=== PATIENT | female | born 1990 | race Caucasian/White ===

== ENCOUNTER 2016-12-09 14:40 | Outpatient (CLI) | payer MEDICARE, MEDICAID ==
--- NOTE | 2016-12-09 19:45 | RAD ---
THREE VIEWS OF THE RIGHT ANKLE 12/09/16 INDICATION: Right ankle swelling. FINDINGS: No acute fracture or subluxation is grossly evident. There is slight widening of the superolateral a spect of the ankle mortise which can be seen with ankle instability. Accessory ossicle is seen adjac ent to the navicular. IMPRESSION: Widening of the superolateral aspect of the right ankle mortise can be seen with ligament instabilit y. A followup MRI of the right ankle would be helpful. No definite acute fracture is evident. POS: JAISON
== END 2016-12-09 14:41 | disposition home or self-care (01) ==
LOC: MADRAD 14:40
PROVIDERS: ATTEND Nurse Practitioner Family
DX: M25.471 Effusion, right ankle (principal)

== ENCOUNTER 2017-05-16 19:55 | Emergency (ER) | payer MEDICARE, MEDICAID ==
[2017-05-16] MEDS ORDERED: Diazepam 5 MG TAB ONE (20:27)
[2017-05-16] MEDS ORDERED: HYDROcodone/Acetaminophen 10/325 mg Tablet ONE (20:27)
[2017-05-16] MEDS ORDERED: Naproxen 500 MG TAB ONE (20:27)
--- NOTE | 2017-05-16 21:23 | CT ---
CT LUMBAR SPINE 05/16/17 HISTORY: 26-year-old who lifted her 4-year-old with back pain. Noncontrast enhanced CT images obtained with coronal and sagittal reconstructions. There is end plate irregularity involving the superior and inferior end plates of T12-L1, L1-2, and L2-3. No significant evidence of acute lumbar spine fractures seen. No significant evidence of centr al spinal stenosis seen. The neural foramen are patent. IMPRESSION: No evidence of acute lumbar spine fractures or bony lesions seen. POS: JAISON
== END 2017-05-16 21:37 | disposition home or self-care (01) ==
LOC: MADERS 19:55
DX: M54.5 Low back pain (principal); I10 Essential (primary) hypertension; F84.0 Autistic disorder; Z79.899 Other long term (current) drug therapy
CPT/HCPCS: 72131

== ENCOUNTER 2017-08-16 14:39 | Outpatient (CLI) | payer MEDICARE, MEDICAID ==
--- NOTE | 2017-08-16 14:58 | RAD ---
CERVICAL SPINE THREE VIEWS: History: Neck pain. FINDINGS: Vertebral bodies and alignment are maintained. No acute fracture or dislocation are apparent. No radi opaque foreign bodies are visible. IMPRESSION: No acute osseous abnormalities are demonstrated. POS: JAISON
--- NOTE | 2017-08-16 15:33 | RAD ---
THREE VIEWS LUMBAR SPINE: 08/16/17 HISTORY: Lumbar disc displacement. COMPARISON: None. FINDINGS: Five lumbar type vertebral bodies. Lumbar spine vertebral body height is maintained. There is no frac ture. No spondylolisthesis or definite spondylolysis. Calcifications in the right lower quadrant are nonspecific. IMPRESSION: No evidence of fracture or dislocation. If there is concern, consider better interrogation with MRI. Previous lumbar spine MRI does document degenerative disc disease. POS: JAISON
== END 2017-08-16 14:40 | disposition home or self-care (01) ==
LOC: MADRAD 14:39
DX: M51.26 Other intervertebral disc displacement, lumbar region (principal); M54.2 Cervicalgia
CPT/HCPCS: 72040; 72100

== ENCOUNTER 2019-05-29 19:44 | Emergency (ER) | payer MEDICARE, MEDICAID ==
[~2019-05-29 19:44] MED LIST: Sodium Chloride 0.9% 1,000 ML BAG ONE
[2019-05-29] MEDS ORDERED: Ondansetron PF 4 MG/2 ML Vial ONE (20:15)
[2019-05-29] MEDS ORDERED: Dextrose 5 %-0.45 % NaCl 1,000 ML ONE (20:17)
[2019-05-29] MEDS ORDERED: Thiamine HCl 200 MG/2 ML VIAL ONE (20:19)
[2019-05-29] MEDS ORDERED: Multivit, Adult Inj 10 ML VIAL ONE (20:19)
[2019-05-29 20:20] LABS: #Basophils 0.1 thou/uL (0.0-0.2); #Eosinphils 0.1 thou/uL (0.0-0.7); #Lymphocytes 2.7 thou/uL (1.20-3.40); #Monocytes 0.7 thou/uL (0.11-0.59); #Neutrophils 5.7 thou/uL (1.40-6.50); %Basophils 1.3 % (0.0-1.0); %Eosinophils 1.5 % (0.0-10.0); %Lymphocytes 28.9 % (21.0-51.0); %Monocytes 7.7 % (0.0-10.0); %Neutrophils 60.6 % (42.0-75.0); Hemoglobin 16.8 g/dL (12.0-16.0); Mean Corpuscular HGB CONC 32.7 g/dL (32.0-36.0); Mean Corpuscular Hemoglobin 28.2 pg (27.0-31.0); Mean Corpuscular Volume 86.1 fL (78.0-98.0); Mean Platelet Volume 7.2 fL (7.4-10.4); Platelet Count 297 thou/uL (130-400); RBC Distribution Width 11.6 % (11.5-14.5); Red Blood Cell (RBC) Count 5.96 mill/uL (4.20-5.40); White Blood Cell (WBC) Count 9.4 thou/uL (4.8-10.8)
[2019-05-29 20:33] LABS: BHCG - Serum Negative (NEGATIVE); Pregs Control Background? CLEAR/WHITE (CLR/WHITE); Pregs Control Bar Appear? YES (CONTROL BAR)
[2019-05-29 20:41] LABS: ALT (SGPT) 106 U/L (8-55); AST (SGOT) 46 U/L (5-34); Albumin 4.9 g/dL (3.5-5.0); Alkaline Phosphatase 78 U/L (40-110); Anion Gap 23 mmol/L (10-20); BUN (Urea Nitrogen) 9 mg/dL (7.0-18.7); Bilirubin, Total 1.9 mg/dL (0.2-1.2); Calc. Creatinine Clearance 0 mL/min (70-130); Calcium 9.9 mg/dL (7.8-10.44); Carbon Dioxide 16 mmol/L (22-29); Chloride 106 mmol/L (98-107); Estimated GFR-MDRD 80; Globulin 3.3 g/dL (2.4-3.5); Glucose 96 mg/dL (70-105); Lipase 35 U/L (8-78); Potassium 3.7 mmol/L (3.5-5.1); Protein, Total 8.2 g/dL (6.0-8.3); Sodium 141 mmol/L (136-145)
[2019-05-29 20:42] LABS: Lactic Acid 1.6 mmol/L (0.5-2.2)
--- NOTE | 2019-05-29 21:28 | CT ---
CT Abdomen Pelvis W Con: 05/29/2019 8:14 PM CLINICAL INFORMATION: Abdominal pain status post gastric sleeve procedure COMPARISON: None. TECHNIQUE: Multiple contiguous axial images were obtained and a CT of the abdomen and pelvis with IV contrast. C oronal and sagittal reformats were performed. FINDINGS: Lower Chest: within normal limits. Abdomen: Liver: within normal limits. Bile Ducts: Normal caliber. Gallbladder: No calcified gallstones. Normal caliber wall. Pancreas: within normal limits. Spleen: within normal limits. Adrenals: within normal limits. Kidneys: within normal limits. Pelvis: Reproductive Organs: No pelvic masses. Ureters: within normal limits. Bladder: within normal limits. Peritoneum: A few bubbles of free air in the abdomen may be from recent surgery. Bowel: Normal caliber. Postsurgical changes are seen in the stomach from gastric sleeve procedure. Mesentery and Retroperitoneum: No enlarged mesenteric or retroperitoneal lymph nodes. Vessels: Normal. Abdominal Wall: Stranding in the anterior abdominal wall from patient's port sites. Bones: Within normal limits IMPRESSION: Expected postsurgical changes without evidence of acute intraabdominal or pelvic abnormality.
[2019-05-29 22:51] LABS: Anion Gap 17 mmol/L (10-20)
[2019-05-29 22:53] LABS: BUN (Urea Nitrogen) 7 mg/dL (7.0-18.7); Calc. Creatinine Clearance 0 mL/min (70-130); Calcium 7.9 mg/dL (7.8-10.44); Carbon Dioxide 16 mmol/L (22-29); Chloride 107 mmol/L (98-107); Estimated GFR-MDRD Greater than 90; Glucose 245 mg/dL (70-105); Potassium 3.5 mmol/L (3.5-5.1); Sodium 136 mmol/L (136-145)
== END 2019-05-29 23:55 | disposition home or self-care (01) ==
LOC: MADERS 19:44
DX: E86.0 Dehydration (principal); R10.9 Unspecified abdominal pain; G89.18 Other acute postprocedural pain; K02.9 Dental caries, unspecified
CPT/HCPCS: 36415; 36416; 74177; 80053; 83605; 83690; 84703; 85025; 96361; 96365; 96366; 96375; J2405; J3411; J7042; J7050

== ENCOUNTER 2019-06-07 22:51 | Emergency (ER) | payer MEDICARE, MEDICAID ==
[2019-06-07] MEDS ORDERED: Sodium Chloride 0.9% 1,000 ML ONE (23:15)
[2019-06-07] MEDS ORDERED: Pantoprazole 40 MG VIAL ONE (23:15)
[2019-06-07] MEDS ORDERED: Ondansetron PF 4 MG/2 ML Vial ONE (23:15)
[2019-06-07 23:42] LABS: INR-International Normal Ratio 1.1; PTT 31.3 SEC (22.9-36.1); Prothrombin Time 14.3 SEC (12.0-14.7)
[2019-06-07 23:45] LABS: #Basophils 0.1 thou/uL (0.0-0.2); #Eosinphils 0.1 thou/uL (0.0-0.7); #Lymphocytes 1.6 thou/uL (1.20-3.40); #Monocytes 0.6 thou/uL (0.11-0.59); #Neutrophils 3.4 thou/uL (1.40-6.50); %Basophils 1.4 % (0.0-1.0); %Eosinophils 1.7 % (0.0-10.0); %Lymphocytes 28.1 % (21.0-51.0); %Monocytes 10.4 % (0.0-10.0); %Neutrophils 58.5 % (42.0-75.0); Hemoglobin 15.5 g/dL (12.0-16.0); Mean Corpuscular HGB CONC 32.5 g/dL (32.0-36.0); Mean Corpuscular Hemoglobin 28.3 pg (27.0-31.0); Mean Corpuscular Volume 87.1 fL (78.0-98.0); Mean Platelet Volume 7.1 fL (7.4-10.4); Platelet Count 280 thou/uL (130-400); RBC Distribution Width 12.5 % (11.5-14.5); Red Blood Cell (RBC) Count 5.47 mill/uL (4.20-5.40); White Blood Cell (WBC) Count 5.8 thou/uL (4.8-10.8)
[2019-06-07 23:51] LABS: ALT (SGPT) 89 U/L (8-55); AST (SGOT) 49 U/L (5-34); Albumin 4.4 g/dL (3.5-5.0); Alkaline Phosphatase 62 U/L (40-110); Anion Gap 21 mmol/L (10-20); BUN (Urea Nitrogen) 4 mg/dL (7.0-18.7); Bilirubin, Total 1.6 mg/dL (0.2-1.2); Calc. Creatinine Clearance 0 mL/min (70-130); Calcium 9.5 mg/dL (7.8-10.44); Carbon Dioxide 20 mmol/L (22-29); Chloride 105 mmol/L (98-107); Estimated GFR-MDRD 60; Globulin 3.3 g/dL (2.4-3.5); Glucose 80 mg/dL (70-105); Potassium 3.2 mmol/L (3.5-5.1); Protein, Total 7.7 g/dL (6.0-8.3); Sodium 143 mmol/L (136-145)
[2019-06-08] MEDS ORDERED: Promethazine HCl 25 MG/ML VIAL ONE (00:09)
[2019-06-08] MEDS ORDERED: Potassium Chloride 20 MEQ TAB ONE (00:09)
[2019-06-08] MEDS ORDERED: Sodium Chloride 0.9% 1,000 ML ONE (00:09)
[2019-06-08] MEDS ORDERED: Potassium Chloride 10 MEQ TAB ONE ×2 (00:19→00:20)
[2019-06-08] MEDS ORDERED: Diazepam 10 MG/2 ML SYRINGE ONE (01:15)
== END 2019-06-08 01:25 | disposition home or self-care (01) ==
LOC: MADERS 22:51
DX: E86.0 Dehydration (principal); R11.2 Nausea with vomiting, unspecified; K95.89 Other complications of other bariatric procedure; J45.909 Unspecified asthma, uncomplicated; I10 Essential (primary) hypertension; F84.0 Autistic disorder
CPT/HCPCS: 80053; 85025; 85610; 85730; 96361; 96372; 96374; 96375; C9113; J2405; J2550; J3360; J7050

== ENCOUNTER 2019-12-19 15:03 | Emergency (ER) | payer MEDICARE, OTHER ==
[2019-12-19 15:27] LABS: Bilirubin Negative (Negative); Blood, Urine Moderate (Negative); Clarity Hazy (Clear); Glucose, Urine (Dipstick) Negative (Negative); Leukocyte Trace (Negative); Nitrite Negative (Negative); Protein, Urine (Dipstick) Negative (Neg-Trace)
[2019-12-19 15:29] LABS: Pregnancy Test - Urine (BHCG) Negative (Negative); Pregu Control Background? CLEAR/WHITE (CLR/WHITE); Pregu Control Bar Appear? YES (CONTROL BAR); Specific Gravity 1.015 (1.002-1.036)
[2019-12-19 15:33] LABS: Bacteria/HPF 1+ HPF (None Seen); WBC/HPF 0-3 HPF (0-3)
--- NOTE | 2019-12-19 15:52 | RAD ---
PA AND LATERAL OF THE CHEST: 12/19/19 INDICATION: Chest pain. COMPARISON: None. FINDINGS: Lungs are clear. Heart size is normal. No acute osseous abnormality is evident. IMPRESSION: No acute cardiopulmonary abnormality. POS: BH
[2019-12-19 16:04] LABS: #Basophils 0.1 thou/uL (0.0-0.2); #Eosinphils 0.1 thou/uL (0.0-0.7); #Lymphocytes 2.3 thou/uL (1.20-3.40); #Monocytes 0.4 thou/uL (0.11-0.59); #Neutrophils 3.3 thou/uL (1.40-6.50); %Basophils 1.2 % (0.0-1.0); %Lymphocytes 37.4 % (21.0-51.0); %Neutrophils 53.4 % (42.0-75.0); Hemoglobin 13.8 g/dL (12.0-16.0); Mean Corpuscular HGB CONC 32.8 g/dL (32.0-36.0); Mean Corpuscular Hemoglobin 29.3 pg (27.0-31.0); Mean Corpuscular Volume 89.3 fL (78.0-98.0); Mean Platelet Volume 6.8 fL (7.4-10.4); Platelet Count 249 thou/uL (130-400); RBC Distribution Width 11.2 % (11.5-14.5); Red Blood Cell (RBC) Count 4.72 mill/uL (4.20-5.40); White Blood Cell (WBC) Count 6.1 thou/uL (4.8-10.8)
[2019-12-19 16:19] LABS: ALT (SGPT) 12 U/L (8-55); AST (SGOT) 15 U/L (5-34); Albumin 3.8 g/dL (3.5-5.0); Alkaline Phosphatase 54 U/L (40-110); Anion Gap 13 mmol/L (10-20); BUN (Urea Nitrogen) 8 mg/dL (7.0-18.7); Bilirubin, Total 1.3 mg/dL (0.2-1.2); Calc. Creatinine Clearance 0 mL/min (70-130); Calcium 8.7 mg/dL (7.8-10.44); Carbon Dioxide 25 mmol/L (22-29); Chloride 107 mmol/L (98-107); Estimated GFR-MDRD Greater than 90; Globulin 2.6 g/dL (2.4-3.5); Glucose 84 mg/dL (70-105); Lipase 20 U/L (8-78); Potassium 3.4 mmol/L (3.5-5.1); Protein, Total 6.4 g/dL (6.0-8.3); Sodium 142 mmol/L (136-145)
== END 2019-12-19 18:32 | disposition home or self-care (01) ==
LOC: MADERS 15:03
DX: R07.9 Chest pain, unspecified (principal); J45.909 Unspecified asthma, uncomplicated; I10 Essential (primary) hypertension; Z79.899 Other long term (current) drug therapy
CPT/HCPCS: 36415; 71046; 80053; 81003; 81015; 81025; 83690; 84484; 85025; 93005